=== PATIENT | male | born 1965 | race African-American/Black ===

== ENCOUNTER 2021-03-12 14:58 | Inpatient (IN) | payer BC, OTHER ==
[~2021-03-12] VITALS: Ht 180.3 cm; Wt 78.9 kg
[~2021-03-12 14:58] MED LIST: FLEXERIL PO; IBUPROFEN 800800 M1 PO; LORTABELXR PO; NORCO 5-325 TA1 EACH PO; NORFLEX100 MG PO; ZPAK PO
[2021-03-12 15:07] VITALS: BP 122/79
[2021-03-12 15:40] LABS: ABSOLUTE NEUTROPHILS 9.6 thou/uL (1.4-8.2); BASOPHILS 0.6 % (0.0-2.0); EOSINOPHILS 0.1 % (0.0-3.0); HEMATOCRIT 50.5 % (42.0-52.0); HEMOGLOBIN 16.6 gm/dL (14.0-18.0); LYMPHOCYTES 12.1 % (24.0-44.0); MCH 31.7 pg (26.0-34.0); MCHC 32.9 g/dL (28.0-37.0); MCV 96.3 fL (80.0-100.0); PLATELET COUNT 259 thou/uL (150-400); POLYS 81.2 % (36.0-66.0); RBC 5.25 mil/uL (4.50-6.00); RDW 13.9 % (10.5-14.5); WBC 11.8 thou/uL (4.0-11.0)
[2021-03-12 15:48] LABS: ALBUMIN 3.6 g/dL (3.4-5.0); CALCIUM 9.3 mg/dL (8.5-10.1); CREATININE 1.6 mg/dL (0.7-1.3); TOTAL BILIRUBIN 0.7 mg/dL (0.2-1.0)
[2021-03-12 18:12] LABS: URINE BILIRUBIN NEGATIVE (Negative); URINE BLOOD 2+ (Negative); URINE CLARITY CLEAR; URINE COLOR YELLOW; URINE GLUCOSE-RANDOM* 2+ (Negative); URINE KETONES 3+ (Negative); URINE LEUKOCYTES-REFLEX NEGATIVE (Negative); URINE NITRITE-REFLEX NEGATIVE (Negative); URINE PROTEIN (DIPSTICK) TRACE (Negative); URINE SPECIFIC GRAVITY >= 1.030 (1.005-1.035); URINE UROBILINOGEN 0.2 E.U./dl (0.2-1.0)
[2021-03-12 18:24] LABS: BACTERIA-REFLEX None Seen /HPF (None Seen); CRYSTALS None Seen /LPF (None Seen); SQUAMOUS None Seen /LPF (0-3); URINE RBC 1-2 Rare /HPF (NONE SEEN); URINE WBC-REFLEX None Seen /HPF (0-5)
[2021-03-12 18:30] LABS: BE(vivo) -20.8 mmol/L (-2 to +3); HCO3 5.5 mmol/L (22.0-26.0); PCO2 VENOUS 15.8 mmHg (41.0-51.0); PO2 VENOUS 94.8 mmHg (35.0-45.0)
[2021-03-12] MEDS ORDERED: LIPITOR10 MG PO (20:43)
[2021-03-12] MEDS ORDERED: TRESIBA100 UNIT/1 SUBQ (20:43)
[2021-03-12] MEDS ORDERED: HUMALOG100 UNIT/1 SUBQ (20:43)
[2021-03-12 22:05] LABS: MAGNESIUM 2.3 mg/dL (1.8-2.4); PHOSPHORUS 3.1 mg/dL (2.6-4.7)
[2021-03-12 22:58] LABS: CHOLESTEROL 351 mg/dL (<200); HDL CHOLESTEROL 74 mg/dL (>40); LDL CHOLESTEROL 243 mg/dL (<100); TC:HDL 4.7 Ratio (Not establshd); TRIGLYCERIDE 174 mg/dL (<150); VLDL 35 mg/dL (<40)
[2021-03-12 23:00] LABS: ALBUMIN 3.2 g/dL (3.4-5.0); CALCIUM 8.4 mg/dL (8.5-10.1); CREATININE 1.5 mg/dL (0.7-1.3); PHOSPHORUS 3.1 mg/dL (2.6-4.7); POTASSIUM 4.6 mmol/L (3.5-5.1)
[2021-03-12 23:02] LABS: SERUM ASSESSMENT Clear
[2021-03-13] VITALS (7 sets, daily range): BP systolic 125–140; BP diastolic 67–81
[2021-03-13 02:16] LABS: CALCIUM 8.2 mg/dL (8.5-10.1); CREATININE 1.3 mg/dL (0.7-1.3); MAGNESIUM 2.2 mg/dL (1.8-2.4); POTASSIUM 4.3 mmol/L (3.5-5.1)
[2021-03-13 06:55] LABS: ALBUMIN 2.9 g/dL (3.4-5.0); CALCIUM 8.2 mg/dL (8.5-10.1); CREATININE 1.2 mg/dL (0.7-1.3); MAGNESIUM 2.2 mg/dL (1.8-2.4); PHOSPHORUS 2.6 mg/dL (2.5-4.9); POTASSIUM 4.1 mmol/L (3.5-5.1)
[2021-03-13 10:37] LABS: ALBUMIN 2.8 g/dL (3.4-5.0); CALCIUM 8.2 mg/dL (8.5-10.1); CREATININE 1.2 mg/dL (0.7-1.3); MAGNESIUM 2.2 mg/dL (1.8-2.4); PHOSPHORUS 2.5 mg/dL (2.6-4.7); POTASSIUM 4.1 mmol/L (3.5-5.1)
--- NOTE | 2021-03-13 12:27 | NUR ---
pt resting comfortably. afebrile, adequate uop, no bm. appropriate appetite. insulin gtt dc'd. pt to be transfered to . report was attempted to be called and I was on hold for 10 minutes then the US said the nurse would call me back. stem maker transported to pt to already. pt has been updated and educated on condition and poc. pt progressing towards poc.
--- NOTE | 2021-03-13 18:28 | NUR ---
PT ARRIVED TO FLOOR AROUND 1300 FROM ED DEPT PER CART IN STABLE CONDITION. ADMISSION HX,ASSESSMENT AND CAREPLAN COMPLETED.BLOOD SUGAR AT DINNER WAS 241 LISPRO INSULIN GIVEN ORDERED.PT REQUESTED FOR NOC TIME INSULIN BUT NONE WAS ORDERED.DR SEGURA NOTIFIED AND HE SAID THAT PT ALREADY TOOK LANTUS THIS AM AND THE NEXT DOSE WILL BE TOMORROW MORNING.PT NOTIFIED.WILL CONTINUE TO MONITOR.
[2021-03-13 21:17] LABS: ALBUMIN 2.6 g/dL (3.4-5.0); CALCIUM 8.5 mg/dL (8.5-10.1); CREATININE 1.3 mg/dL (0.7-1.3); MAGNESIUM 1.9 mg/dL (1.8-2.4); PHOSPHORUS 1.3 mg/dL (2.6-4.7); POTASSIUM 3.8 mmol/L (3.5-5.1)
[2021-03-14 05:46] LABS: ABSOLUTE NEUTROPHILS 5.2 thou/uL (1.4-8.2); BASOPHILS 0.8 % (0.0-2.0); EOSINOPHILS 1.3 % (0.0-3.0); HEMATOCRIT 45.2 % (42.0-52.0); LYMPHOCYTES 34.5 % (24.0-44.0); MCH 31.3 pg (26.0-34.0); MCHC 33.2 g/dL (28.0-37.0); MCV 94.3 fL (80.0-100.0); MONOCYTES 6.8 % (1.0-8.0); PLATELET COUNT 223 thou/uL (150-400); POLYS 56.6 % (36.0-66.0); RBC 4.79 mil/uL (4.50-6.00); RDW 13.4 % (10.5-14.5); WBC 9.2 thou/uL (4.0-11.0)
[2021-03-14 06:05] LABS: ALBUMIN 2.5 g/dL (3.4-5.0); POTASSIUM 4.2 mmol/L (3.5-5.1); TOTAL BILIRUBIN 0.5 mg/dL (0.2-1.0); TOTAL PROTEIN 5.8 g/dL (6.4-8.2)
--- NOTE | 2021-03-14 07:17 | NUR ---
Assumed pt care at 1900. A/OX4,VSS. Up ad cedrick in room w/o any problems voiced. C/o nausea at shift change, medicated with Zofran w/o any further complaints of nausea reported. Denies pain on assessment. Resting quietly in bed w/o any distress noted.
[2021-03-14 07:39] VITALS: BP 140/84
--- NOTE | 2021-03-14 12:56 | NUR ---
Assess due to DKA admission. Pt with type I DM. States usually on Treshiba but had run out of medication and started developing n/v, BG >400 at admit. Reports at home, able to manage BG with 4 injections. Chol 351, triglycerides 174, and LDL 243-has lipitor ordered. Wt loss due to n/v, hyperglycemia. Tolerating full liquid lunch fair today. Pt voiced no questions regarding diet. BG starting to improve. Low nutrition risk at this time
[2021-03-14 15:27] VITALS: BP 129/85
--- NOTE | 2021-03-14 15:52 | NUR ---
PT ADMITTED RELATED TO DKA. CM REVIEWED CHART AND SPOKE WITH CARE TEAM. CM MET WITH PT AT BEDSIDE THIS DAY. PT APPEARED TO BE A&O X4. CM ROLE INTRODUCED. PT INDICATED HE LIVES ALONE IN A THIRD FLOOR APARTMENT WITH ONE SIDED HR. 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 PT INDICATED NO DME OR HH HX. PT INDICATED HE PLANS TO RETURN HOME ONCE MEDICALLY STABLE. PT HAS A [employer] ANTONIO AND CHECKS HIS BLOOD SUGARS REGULARLY. PT INDICATED HE HAD ISSUE WITH HIS TRESIBA SCRIPT PRIOR TO ADMISSION PT INDICATED HE ISN'T CERTAIN IF IT IS RESOLVED OR NOT AND STATED HE WOULD SPEAK WITH HOSPITALIST ABOUT POSSIBLE ALTERNATIVE. CM FOLLOWING INDICATED WITH DC PLANNING.
--- NOTE | 2021-03-14 18:32 | NUR ---
Assumed pt care at 7am.Pt in and out of bed independently.Assessment completed vss.Dr Shah here,order noted.Consult called to gi group and Nelly mejia rounded on pt,pt will be going for egd in am.Pt bs report better this evening. Family here to visit,updates given.1 bag of Nap04 given today.No verbal c/o at present.Will continue to monitor.
[2021-03-14 19:40] VITALS: BP 140/92
--- NOTE | 2021-03-15 01:04 | NUR ---
Assumed pt care at 1900. A/OX4, VSS. Blood sugar initially 57 rechecked it was 67, pt asymptomatic and denies any Nausea apple juice/Jello given to pt; blood sugar rechecked upto 97 then 139 an hr later. Pt is up ad cedrick in room and hallway,no c/o pain. Encouraged to voice needs as needed. Reports trace of blood in stool,OBS was negative. Pt is NPO from midnight for EGD in AM. Resting queitly at this time,will continue to monitor pt.
[2021-03-15 05:36] LABS: CALCIUM 8.1 mg/dL (8.5-10.1); CREATININE 0.8 mg/dL (0.7-1.3); MAGNESIUM 1.8 mg/dL (1.8-2.4); PHOSPHORUS 3.3 mg/dL (2.5-4.9); POTASSIUM 3.4 mmol/L (3.5-5.1)
[2021-03-15 07:48] VITALS: BP 139/85
--- NOTE | 2021-03-15 11:27 | NUR ---
PT NPO SINCE MIDNIGHT. PT A&OX4. PT HAD SHOWER THIS AM. PT IS SCHEDULED FOR EGD THIS AM. CONSENT SIGNED ON CHART.
[2021-03-15] MEDS ORDERED: LANTUS SOL100 UNIT/1 SUBQ (14:50)
[2021-03-15] MEDS ORDERED: PROTONIX40 M2 PO (14:51)
[2021-03-15] MEDS ORDERED: CARAFATE 1 GM TA1 G1 PO (14:52)
[2021-03-15 15:07] VITALS: BP 139/85
--- NOTE | 2021-03-15 15:17 | NUR ---
REPORT CALLED TO 5S AT 1347, 1435 AND 1511. 5S NOT WILLING TO TAKE REPORT AT THIS TIME. RN WILL TAKE PT UP TO 5S AND GIVE BEDSIDE REPORT.
--- NOTE | 2021-03-15 15:47 | NUR ---
PT HAD EGD THIS DAY. CARE TEAM INDICATED THAT PT IS MEDICALLY STABLE TO DC HOME THIS DAY. PHYSICIAN PERSCRIBED LANTUS AND HUMALOG INSTEAD OF THE TRESIBA. PT IS AWARE AND APPRECIATIVE. NO OTHER CM INTERVENTION INDICATED. CASE CLOSED.
[2021-03-15 16:15] VITALS: BP 139/85
--- NOTE | 2021-03-15 17:37 | NUR ---
PT HAD EGD TODAY AND RETURNED TO ROOM WITH INSTRUCTIONS TO HAVE PATIENT EAT. IF PATIENT IS ABLE TO KEEP FOOD DOWN AND OK WITH HOSPITALIST THEN PT IS OK TO DISCHARGE PER GI PHYSICIAN. PT ATE TURKEY SANDWICH TRAY AND STATED NO DISCOMFORT. PT'S IV REMOVED AND PT WAS DISCHARGED HOME. PT GIVEN D/C INSTRUCTIONS AND PRESCRIPTIONS.
--- NOTE | 2021-03-17 11:11 | P ---
[facility] [place] [address] PROCEDURE REPORT Name: JOSH WILSON Room #: 462-P [facility] ..#: [id number] Admission: 03/12/21 Attend Phys: Adam Whitman MD Discharge: 03/15/21 Date of : 65 Report #: [id number] THIS REPORT FOR: cc: Shyla Chu MD, Karla L. MD McElhinney, Christian C. MD ~ DOC #: [id number] cc: MD Sid Walker MD DATE OF SERVICE: 03/15/2021 PROCEDURE PERFORMED: Upper endoscopy with biopsies. HISTORY OF PRESENT ILLNESS: The patient is a 55-year-old male, who was admitted through the emergency room yesterday for nausea, vomiting, midepigastric abdominal pain, also melanotic type stools. Denies any heartburn symptoms or dysphagia. Admit hemoglobin 15.0, glucose high on admission was 414, today is 147. Plan is for upper endoscopy. DESCRIPTION OF PROCEDURE: The risks and benefits of the procedure were explained to the patient, those risks including but not limited to bleeding, perforation and the risk of sedation. He understood these risks and gave informed consent. Sedation was given using propofol per anesthesia. Next, using a standard Olympus upper endoscope, the scope was placed in the patient's mouth and advanced under direct vision through the esophagus, stomach and into the second portion of the duodenum. The larynx was normal in appearance. The upper and mid esophagus was normal. In the distal esophagus; however, grade D erosive esophagitis was noted. No evidence of active bleeding. Upon entering the stomach, a small hiatal hernia was noted. Overall, there was a mild gastritis noted in the body and antrum. Biopsies were obtained to rule out H. pylori. The pylorus was normal and patent. The duodenal bulb, first and second portion were all normal. Biopsies were obtained to rule out celiac sprue. There was no evidence of bleeding throughout the exam today. The scope was then withdrawn and the procedure terminated. The patient tolerated the procedure well. IMPRESSION: 1. Grade D severe esophagitis. 2. Small hiatal hernia. 3. Mild gastritis. 4. Otherwise, normal upper endoscopy. RECOMMENDATIONS: 1. Await biopsy results. 2. Recommend daily PPI therapy long-term. [address] [address] PROCEDURE REPORT Name: JOSH WILSON Room #: 462-P DIS IN M.R.#: [id number] Admission: 03/12/21 Attend Phys: Adam Whitman MD Discharge: 03/15/21 Date of : 65 Report #: [id number] 3. Will add Carafate liquid t.i.d. for the next 2 weeks and then can discontinue. 4. Diabetic diet today. If he tolerates this well, okay to discharge home from a GI standpoint. Thank you for allowing me to participate in his care. Sid Martinez MD CCM/AMRCO <ELECTRONICALLY SIGNED> By: Sid Martinez MD 03/17/21 1111 1252 19 Sid Martinez MD /nt
--- NOTE | 2021-03-19 19:06 | PATH ---
[facility] [place] [address] [place] [address] PATHOLOGY RPT PROCEDURE Name: EZEKIEL SALDIVAR Leslie Room #: 462-P DIS IN M.R.#: [id number] Admission: 03/12/21 Date of : 65 Discharge: 03/15/21 Report #: [id number] Path Case #: [id number] [facility] Accession Number: [id number] . 01 Material submitted: . PART A: duodenum - DUODENAL BIOPSY PART B: gastrointestinal site - BIOPSY GASTRITIS . 01 Clinical history: . DKA HISTORY OF N/V,ABDOMINAL PAIN GASTRITIS,ESOPHAGITIS,HIATAL HERNIA FOR A- R/O SPRUE . 02 Diagnosis: A. Small bowel mucosa, duodenum, rule out sprue, endoscopic biopsy: - Mild nonspecific chronic inflammation with focal fundic-type metaplasia. - Negative for villous blunting or increase in intraepithelial lymphocytes. . B. Gastric mucosa, gastritis, rule out H. pylori, endoscopic biopsy: - Mild reactive gastropathy. - Negative for intestinal metaplasia or atrophy. - Negative for Helicobacter pylori (properly controlled immunohistochemical stain performed). (IUV:pit; 03/19/2021) QTP 03/19/2021 1229 Local . 02 Electronically signed: . Zeina Henry MD, Pathologist NPI- [id number] . 01 Gross description: . A. Received in formalin labeled "Ezekiel Saldivar, duodenal BX rule out sprue" are multiple urbano-brown soft tissue fragments measuring in aggregate 0.7 x 0.4 x 0.2 cm. The specimen is submitted entirely in A1. . B. Received in formalin labeled "Ezekiel Saldivar, BX gastritis rule out H. pylori" are multiple urbano-brown soft tissue fragments measuring in aggregate 1.1 x 0.6 x 0.1 cm. The specimen is submitted entirely in B1. ([facility]; 03/18/2021) [facility] 03/18/2021 [facility] Local . 02 Pathologist provided ICD-10: K52.9, K31.9 . 02 [place] [address] PATHOLOGY RPT PROCEDURE Name: EZEKIEL SALDIVAR Room #: 462-P DIS IN M.R.#: [id number] Admission: 03/12/21 Date of : 65 Discharge: 03/15/21 Report #: [id number] Path Case #: [id number] Specimen Comment: A courtesy copy of this report has been sent to [phone], [phone] Specimen Comment: [phone] Specimen Comment: Report sent to / DR MALLORY Performed at: [address] [facility], [place] [id number] MD Mitul Dukes MD Phone: [phone] Performed at: [address] [id number] MD Zeina Henry MD Phone: [phone]
== END 2021-03-15 16:31 | disposition home or self-care (01) | DRG 637 ==
LOC: ER 14:58 → EROBS 19:31 → 4W 19:31
PROVIDERS: Emergency Medicine; Nurse Practitioner; Nurse Practitioner Family; ADMIT Hospitalist; ATTEND Hospitalist
PROC: 0DB78ZX Excision of Stomach, Pylorus, Via Natural or Artificial Opening Endoscopic, Diagnostic (ICD-10-PCS; principal; 2021-03-15)
PROC: 0DB98ZX Excision of Duodenum, Via Natural or Artificial Opening Endoscopic, Diagnostic (ICD-10-PCS; principal; 2021-03-15)
DX: E10.10 Type 1 diabetes mellitus with ketoacidosis without coma (principal); K29.71 Gastritis, unspecified, with bleeding; K20.91 Esophagitis, unspecified with bleeding; N17.9 Acute kidney failure, unspecified; E78.5 Hyperlipidemia, unspecified; F12.90 Cannabis use, unspecified, uncomplicated; K44.9 Diaphragmatic hernia without obstruction or gangrene; F17.210 Nicotine dependence, cigarettes, uncomplicated; E86.0 Dehydration; E83.39 Other disorders of phosphorus metabolism; K59.00 Constipation, unspecified; K64.9 Unspecified hemorrhoids; F19.10 Other psychoactive substance abuse, uncomplicated; Z20.822 Contact with and (suspected) exposure to COVID-19; Z88.2 Allergy status to sulfonamides; Z71.6 Tobacco abuse counseling; Z79.899 Other long term (current) drug therapy
CPT/HCPCS: 10040; 62110; 62900; 70005